=== PATIENT | female | born 1960 | race Caucasian/White ===

== ENCOUNTER 2017-01-06 23:34 | Observation (INO) | payer BC ==
[~2017-01-06] VITALS: Ht 160 cm; Wt 59.0 kg
[2017-01-07 00:06] LABS: HEMOGLOBIN 13.4 gm/dl (12.3-15.3); RED BLOOD COUNT 4.28 M/UL (4.00-5.10); WHITE BLOOD COUNT 5.6 K/UL (4.5-11.0)
[2017-01-07 00:25] LABS: BUN/CREATININE RATIO 15 (0-10)
[2017-01-07] MEDS ORDERED: NEURONTIN 100100 MG PO (04:04)
[2017-01-07] MEDS ORDERED: MOBIC7.5 MG PO (04:04)
[2017-01-07] MEDS ORDERED: SYNTHROID75 MCG PO (04:04)
[2017-01-07] MEDS ORDERED: LIPITOR TAB 2020 MG PO (04:05)
[2017-01-07] MEDS ORDERED: LIPITOR10 MG PO (18:34)
== END 2017-01-07 19:14 | disposition home or self-care (01) ==
LOC: ER1 23:34 → MED SURG 4 01-07 03:00 → ZEROF 01-07 03:00 → MED SURG 4 01-07 04:00
PROVIDERS: Specialist/Technologist Athletic Trainer; ADMIT Internal Medicine
DX: R07.89 Other chest pain (principal); E78.5 Hyperlipidemia, unspecified; E03.9 Hypothyroidism, unspecified; M62.82 Rhabdomyolysis; R79.89 Other specified abnormal findings of blood chemistry; Z87.891 Personal history of nicotine dependence; Z83.42 Family history of familial hypercholesterolemia; Z88.1 Allergy status to other antibiotic agents; Z79.82 Long term (current) use of aspirin; Z79.899 Other long term (current) drug therapy; Z90.49 Acquired absence of other specified parts of digestive tract; Z98.890 Other specified postprocedural states
CPT/HCPCS: ECHO; 36415; 71020; 78452; 80053; 81001; 82550; 82553; 83874; 84484; 85025; 93005; 93306; 99285; A9502; G0378

== ENCOUNTER → 2017-02-04 | Outpatient (CLI) | payer BC ==
[~2017-02-04] MED LIST: LIPITOR TAB 2020 MG PO; LIPITOR10 MG PO; MOBIC7.5 MG PO; NEURONTIN 100100 MG PO; SYNTHROID75 MCG PO
== END ==
LOC: LAB 01:04
DX: M62.82 Rhabdomyolysis (principal)
CPT/HCPCS: 36415; 82550

== ENCOUNTER → 2021-01-07 | Outpatient (CLI) | payer BC | LOC: LAB 19:01 | DX: Z20.822 Contact with and (suspected) exposure to COVID-19 (principal) | CPT/HCPCS: U0002 ==

== ENCOUNTER → 2021-01-21 | Outpatient (CLI) | payer BC ==
[2021-01-21 23:38] LABS: ADENOVIRUS F 40/41 Not Detected (Negative); ASTROVIRUS Not Detected (Negative); CAMPYLOBACTER Not Detected (Negative); CLOSTRIDIUM DIFFICILE TOX A/B Not Detected (Negative); CRYPTOSPORIDIUM Not Detected (Negative); E.COLI 0157 Not Detected (Negative); ENTAMOEBA HISTOLYTICA Not Detected (Negative); ENTEROAGGREGATIVE E.COLI (EAEC Not Detected (Negative); ENTEROTOXIGENIC E.COLI (ETEC) Not Detected (Negative); GIARDIA LAMBLIA Not Detected (Negative); NOROVIRUS GI/GII Not Detected (Negative); PLESIOMONAS SHIGELLOIDES Not Detected (Negative); ROTOVIRUS A Not Detected (Negative); SALMONELLA Not Detected (Negative); SAPOVIRUS Not Detected (Negative); SHIG/ENTEROINVAS.ECOLI (EIEC) Not Detected (Negative); SHIGA-LIK TOX.PRO.E.COLI (STEC Not Detected (Negative); VIBRIO Not Detected (Negative); VIBRIO CHOLERAE Not Detected (Negative); YERSINIA ENTEROCOLITICA Not Detected (Negative)
[2021-01-22 08:39] LABS: ENTEROPATHOGENIC E.COLI (EPEC) DETECTED (Negative)
== END ==
LOC: LAB 23:31
PROVIDERS: Family Medicine
DX: R19.7 Diarrhea, unspecified (principal)
CPT/HCPCS: 82272; 87507

== ENCOUNTER → 2021-01-24 | Outpatient (CLI) | payer BC | LOC: LAB 20:11 | DX: R19.7 Diarrhea, unspecified (principal) | CPT/HCPCS: 87045; 87046 ==

== ENCOUNTER → 2021-06-08 | Outpatient (CLI) | payer OTHER | LOC: OPSV 22:30 | DX: Z20.822 Contact with and (suspected) exposure to COVID-19 (principal) | CPT/HCPCS: U0002 ==

== ENCOUNTER → 2021-06-23 | Outpatient (CLI) | payer BC | LOC: EXRD 10:39 | DX: Z09 Encounter for follow-up examination after completed treatment for conditions other than malignant neoplasm (principal); Z86.16 Personal history of COVID-19 | CPT/HCPCS: 71046 ==

== ENCOUNTER → 2021-07-13 | Outpatient (CLI) | payer BC ==
[2021-07-15 08:13] LABS: SARS COV-2 IGG AB Positive (Negative)
== END ==
LOC: LAB 20:36
PROVIDERS: Family Medicine
DX: U07.1 COVID-19 (principal)
CPT/HCPCS: 36415; 86769

== ENCOUNTER → 2021-08-11 | Outpatient (CLI) | payer BC | LOC: LAB 06:22 | DX: Z86.16 Personal history of COVID-19 (principal) | CPT/HCPCS: 36415 ==

== ENCOUNTER → 2021-09-11 | Outpatient (CLI) | payer BC | LOC: EXRD 13:40 | DX: S69.90XA Unspecified injury of unspecified wrist, hand and finger(s), initial encounter (principal); M79.89 Other specified soft tissue disorders | CPT/HCPCS: 73140 ==

== ENCOUNTER → 2021-11-29 | Outpatient (CLI) | payer BC ==
[2021-11-29 11:19] LABS: HEMOGLOBIN 13.7 gm/dl (12.3-15.3); RED BLOOD COUNT 4.34 M/UL (4.00-5.10); WHITE BLOOD COUNT 4.3 K/UL (4.5-11.0)
[2021-11-29 11:46] LABS: BUN/CREATININE RATIO 22 (0-10)
== END ==
LOC: LAB 10:57
PROVIDERS: Family Medicine
DX: E78.5 Hyperlipidemia, unspecified (principal); E55.9 Vitamin D deficiency, unspecified
CPT/HCPCS: 36415; 80053; 80061; 84439; 84443; 85027